=== PATIENT | male | born 1955 | race Caucasian/White ===

== ENCOUNTER 2017-10-05 12:54 | Emergency (ER) | payer BC | END 2017-10-05 13:26 | disposition home or self-care (01) | LOC: E/R 12:54 | DX: S90.561A Insect bite (nonvenomous), right ankle, initial encounter (principal); S90.562A Insect bite (nonvenomous), left ankle, initial encounter; S60.561A Insect bite (nonvenomous) of right hand, initial encounter; S60.562A Insect bite (nonvenomous) of left hand, initial encounter; W57.XXXA Bitten or stung by nonvenomous insect and other nonvenomous arthropods, initial encounter; Y92.9 Unspecified place or not applicable | CPT/HCPCS: 99283 ==

== ENCOUNTER 2017-10-23 09:30 | Emergency (ER) | payer BC ==
[2017-10-23] MEDS: DIPHTH/TET/ACEL PERTUSS (ADULT) 0.5 ML VIAL IM* (09:41)
[2017-10-23] MEDS: ALBUTEROL 0.5% (NEB) 2.5 MG/0.5 ML AMP NEB (09:46)
[2017-10-23] MEDS: IPRATROPIUM (NEB) 0.5 MG/2.5 ML AMP NEB (09:46)
== END 2017-10-23 11:25 | disposition home or self-care (01) ==
LOC: E/R 09:30
DX: S01.81XA Laceration without foreign body of other part of head, initial encounter (principal); F17.210 Nicotine dependence, cigarettes, uncomplicated; I10 Essential (primary) hypertension; R06.2 Wheezing; Y08.02XA Assault by strike by baseball bat, initial encounter; Z71.6 Tobacco abuse counseling; Z98.61 Coronary angioplasty status; Z23 Encounter for immunization
CPT/HCPCS: 70450; 71045; 90471; 90715; 94644; 99284-25